=== PATIENT | female | born 1990 | race African-American/Black ===

== ENCOUNTER 2016-12-19 16:25 | Emergency (ER) | payer OTHER ==
[2016-12-19 16:28] VITALS: BP 103/62; BMI 19.0
--- NOTE | 2016-12-19 17:22 | DR.TOOTHHP ---
HPI - Time Seen Time seen: 17:15 - Primary Care Physician Primary Care Physician: JAVED - HPI Comment HPI Comment: PATIENT IS 15 MONTHS . TOOK AMOXICILLIN BUT STILL HURTING. DENTAL EVALUATION PENDING NEXT MONTH. NO FEVER. - Complaints Chief Complaint Doctors Comments: TOOTHACHE TIMES 3 DAYS. Chief Complaint:: PATIENT HAS A TOOTH ACHE FOR THE LAST 3 DAYS. SHE IS 15 WEEKS OB. - Reviewed Nurses Notes Reviewed: Yes - Source History Provided: Patient - Mode of Arrival Mode of Arrival: Ambulatory - Timing Onset of Chief Complaint: 12/16/16 - Severity Pain Severity: Moderate - Location Location:: Gums - Context Onset:: Spontaneous, Previous Caries History Of: None - Modifying Factors Worsens:: Chewing Improves:: Analagesics havn't helped - Associated Signs and Symptoms Associated signs and symptoms: None PMH - PMH Past Medical History: No Past Surgical History: No Surgical History: No History - Family History History of Family Medical Conditions: Yes Family Medical History: Hypertension - Social History Does patient currently use any type of tobacco product: No Have you used tobacco products in the last 12 months: No Type of Tobacco Use: None Does any household member use tobacco: No Alcohol Use: None Do you use any recreational Drugs:: No Lives With: Family Lives Where: Home - infectious screening In the last 2 months have you had wt loss of >10#?: NO Have you had fever, night sweats or hemotysis?: No Have you traveled outside the country in the last 6 months?: No Isolation: Standard ROS - Review of Systems Constitutional: No Symptoms Reported Eyes: No Symptoms Reported ENTM: Mouth Pain. negative: Loose Teeth (UPPER 3RD MOLARS LT AND RT ARE HURTING.) Respiratoy: No Symptoms Reported. negative: Productive Cough, Short of Breath, Wheezing, Hemoptysis Cardiovascular: No Symptoms Reported. negative: Chest Pain Gastrointestinal/Abdominal: No Symptoms Reported. negative: Abdominal Pain, Nausea, Vomiting Genitourinary: No Symptoms Reported. negative: Dysuria, Frequency, Hematuria Neurological: No Symptoms Reported. negative: Headache, Weakness, Dizziness Musculoskeletal: No Symptoms Reported Integumentary: No Symptoms Reported Hematologic/Lymphatic: No Symptoms Reported Endocrine: No Symptoms Reported All Other Systems: Reviewed and Negative PE - Vital Signs Vitals: Pulse Rate 90 Respiratory Rate 20 Blood Pressure [Right Arm] 123/89 Blood Pressure 103/62 O2 Sat by Pulse Oximetry 100 - General Limitations: No Limitations General Appearance: Alert - Head Head Exam: Normal Inspection - Eyes Eye exam: Normal Appearance - ENT ENT Exam: Normal External Ear Exam External Ear Exam: Normal External Inspection TM/Canal Exam: Bilateral Normal Nose Exam: Normal Nose Exam Mouth Exam: Normal Inspection. negative: Trismus Teeth Exam: Dental Caries, Dental Tenderness # (UPPER 3RD MOLAR LT AND RT.), Gingival Swelling (UPPER 3RD LT AND RT MOLARS, GUM INFLAME.) Throat Exam: Normal Inspection - Neck Neck Exam: Trachea Midline. negative: Tenderness, Meningismus, Lymphadenopathy - Chest Chest Inspection: Symmetric Chest Wall Rise - Respiratory Respiratory Exam: Normal Lung Sounds Bilat Respiratory Exam: Bilateral Clear to Auscultation - Cardiovascular Cardiovascular Exam: Regular Rate, Normal Rhythm, Normal Heart Sounds - Abdominal Exam Abdominal Exam: Normal Bowel Sounds, Soft. negative: Tenderness - Extremities Extremities Exam: Normal Inspection - Back Back Exam: Normal Inspection - Neurologic Neurological Exam: Alert, Oriented X3 - Psychiatric Psychiatric Exam: Normal Affect, Normal Mood - Skin Skin Exam: Normal Color MDM - Differential diagnosis Differential Diagnosis: Other (GINGIVITIS, DENTAL PAIN) Course - Treatment Treatment: SEE ORDERS. - Education/Counseling Education/Counseling: Patient, Education Educated On: Diagnosis, Needs for Follow Up - Diagnosis Discharge Problem: Pain, dental, Gingivitis - Discharge Plan Disposition: 01 HOME, SELF-CARE Condition: Stable Prescriptions: Acetaminophen/Codeine Tab [TYLENOL w/CODEINE #3 (300 MG/30 MG) *] 1 tab PO Q6H PRN #15 tab PRN Reason: Pain Clindamycin HCl 150 mg PO Q6H #28 cap - Follow ups/Referrals Follow ups/Referrals: SADAF BURT [Primary Care Provider] - 3 days - Instructions Instructions: Dental Pain, Gingivitis, [id number] Additional Instructions: RETURN TO ED IF WORSE. RETURN TO ED IF WORSE. SEE DENTIST OF YOUR CHOICE THIS WEEK.
== END 2016-12-19 17:43 | disposition home or self-care (01) ==
LOC: ER 16:33
DX: K05.10 Chronic gingivitis, plaque induced (principal); K08.89 Other specified disorders of teeth and supporting structures
CPT/HCPCS: 99281; 99282

== ENCOUNTER 2017-02-17 12:14 | Emergency (ER) | payer OTHER ==
[2017-02-17 12:18] VITALS: BP 100/68
--- NOTE | 2017-02-17 12:49 | DR.GENAD ---
HPI - PCP Primary Care Physician: nedra - Complaint/Symptoms Chief Complaint Doctors Comments: Patient denies abdominal pain, denies vaginal spotting. Chief Complaint:: patient stated she is 5 months yesterday she started hurting in her chest when she takes a deep breath. she stated she hurts also when she lays down on her back. - Source History Provided: Patient - Mode of Arrival Mode of Arrival: Ambulatory - Timing Onset of Chief Complaint: 02/16/17 PMH - PMH Past Medical History: No Past Surgical History: No Surgical History: No History - Family History History of Family Medical Conditions: Yes Family Medical History: Hypertension - Social History Does patient currently use any type of tobacco product: Yes Have you used tobacco products in the last 12 months: Yes Type of Tobacco Use: Cigarettes How many years tobacco product used: 5 Does any household member use tobacco: No Alcohol Use: None Do you use any recreational Drugs:: No Lives With: Alone Lives Where: Home - infectious screening In the last 2 months have you had wt loss of >10#?: NO Have you had fever, night sweats or hemotysis?: No Have you traveled outside the country in the last 6 months?: No Isolation: Standard ROS - Review of Systems Eyes: No Symptoms Reported ENTM: No Symptoms Reported Respiratoy: No Symptoms Reported Cardiovascular: No Symptoms Reported Gastrointestinal/Abdominal: No Symptoms Reported Genitourinary: No Symptoms Reported Neurological: No Symptoms Reported Musculoskeletal: No Symptoms Reported Integumentary: No Symptoms Reported Hematologic/Lymphatic: No Symptoms Reported Endocrine: No Symptoms Reported Psychiatric: No Symptoms Reported All Other Systems: Reviewed and Negative PE - Vital Signs Vitals: Temperature 98.6 F Pulse Rate 83 Respiratory Rate 16 Blood Pressure [Right Arm] 123/89 Blood Pressure 100/68 O2 Sat by Pulse Oximetry 100 - General General Appearance: Alert, In No Apparent Distress - Head Head Exam: Normal Inspection, Atraumatic - Eyes Eye exam: Normal Appearance, PERRL, EOMI - ENT ENT Exam: Normal Exam External Ear Exam: Normal External Inspection TM/Canal Exam: Bilateral Normal Nose Exam: Normal Nose Exam Throat Exam: Normal Inspection - Neck Neck Exam: Normal Inspection, Full ROM - Chest Chest Inspection: Normal Inspection - Respiratory Respiratory Exam: Normal Lung Sounds Bilat Respiratory Exam: Bilateral Clear to Auscultation - Cardiovascular Cardiovascular Exam: Regular Rate, Normal Rhythm - Abdominal Exam Abdominal Exam: Normal Inspection Abdominal Tenderness: negative: RUQ, RLQ, LUQ, LLQ, Epigastrium, Suprapubic, Diffuse, Mild, Moderate, Severe, Other - Extremities Extremities Exam: Normal Inspection, Full ROM - Back Back Exam: Normal Inspection, Full ROM - Neurologic Neurological Exam: Alert, Oriented X3, CN II-XII Intact - Psychiatric Psychiatric Exam: Normal Affect - Skin Skin Exam: Warm, Dry, Intact - Diagnosis Discharge Problem: Rhinitis Qualifiers: Rhinitis type: unspecified Chronicity: acute Qualified Code(s): J00 - Acute nasopharyngitis [common cold] - Discharge Plan Condition: Stable - Follow ups/Referrals Follow ups/Referrals: SADAF BURT [Primary Care Provider] - 3 days - Instructions
== END 2017-02-17 13:07 | disposition home or self-care (01) ==
LOC: ER 12:21
DX: J00 Acute nasopharyngitis [common cold] (principal)
CPT/HCPCS: 99281; 99282

== ENCOUNTER 2017-04-15 10:06 | Emergency (ER) | payer OTHER ==
[2017-04-15 10:12] VITALS: BP 104/69; BMI 22.3
[2017-04-15 10:54] LABS: BILIRUBIN,URINE NEGATIVE (NEGATIVE); BLOOD/HEMOGLOBIN,URINE NEGATIVE (NEGATIVE); GLUCOSE, URINE NEGATIVE (NEGATIVE); KETONES,URINE NEGATIVE (NEGATIVE); LEUKOCYTE ESTERASE ,URINE 1+ (NEGATIVE); NITRITES,URINE NEGATIVE (NEGATIVE); PROTEIN,URINE 1+ (NEGATIVE); UROBILINOGEN,URINE NORMAL (NORMAL)
[2017-04-15 11:10] LABS: APPEARANCE,URINE SLIGHTLY HAZY (CLEAR); BACTERIA,URINE NEGATIVE /HPF (NEGATIVE); COLOR,URINE YELLOW (YELLOW); RBC,URINE NONE SEEN /HPF (NEGATIVE); SQUAMOUS EPITHELIAL CELL,UR MANY /HPF (NEGATIVE)
[2017-04-15 11:11] LABS: AMORPHOUS SEDIMENT,UR TRACE /HPF (NEGATIVE); MUCUS,URINE FEW /HPF (NEGATIVE)
== END 2017-04-15 11:57 | disposition home or self-care (01) ==
LOC: ER 10:15
DX: R10.84 Generalized abdominal pain (principal); Z3A.31 31 weeks gestation of pregnancy
CPT/HCPCS: 81001; 99284

== ENCOUNTER 2017-05-25 21:15 | Emergency (ER) | payer OTHER ==
[2017-05-25 21:22] VITALS: BP 124/67; BMI 24.0
[2017-05-25 22:32] LABS: APPEARANCE,URINE CLEAR (CLEAR); COLOR,URINE YELLOW (YELLOW)
[2017-05-25 22:33] LABS: BILIRUBIN,URINE NEGATIVE (NEGATIVE); BLOOD/HEMOGLOBIN,URINE NEGATIVE (NEGATIVE); GLUCOSE, URINE NEGATIVE (NEGATIVE); KETONES,URINE 1+ (NEGATIVE); NITRITES,URINE NEGATIVE (NEGATIVE); PROTEIN,URINE TRACE (NEGATIVE)
[2017-05-25 22:34] LABS: BACTERIA,URINE TRACE /HPF (NEGATIVE); LEUKOCYTE ESTERASE ,URINE NEGATIVE (NEGATIVE); RBC,URINE 0-3 /HPF (NEGATIVE); SQUAMOUS EPITHELIAL CELL,UR NUMEROUS /HPF (NEGATIVE); UROBILINOGEN,URINE NORMAL (NORMAL)
--- NOTE | 2017-05-25 22:58 | DR.GENAD ---
HPI - PCP Primary Care Physician: JAVED - Complaint/Symptoms Chief Complaint:: CRAMPING PELVIC PAIN, LIKE CONTACTIONS - Source History Provided: Patient - Mode of Arrival Mode of Arrival: Ambulatory - Timing Onset of Chief Complaint: 05/25/17 PMH - PMH Past Medical History: No Past Medical History: Anemia Past Surgical History: No Surgical History: No History - Family History History of Family Medical Conditions: No Family Medical History: Hypertension - Social History Does patient currently use any type of tobacco product: No Have you used tobacco products in the last 12 months: No Type of Tobacco Use: None Does any household member use tobacco: No Alcohol Use: None Do you use any recreational Drugs:: No Lives With: Family Lives Where: Home - infectious screening In the last 2 months have you had wt loss of >10#?: NO Have you had fever, night sweats or hemotysis?: No Have you traveled outside the country in the last 6 months?: No Isolation: Standard PE - Vital Signs Vitals: Temperature 97.9 F Pulse Rate 83 Respiratory Rate 17 Blood Pressure [Right Arm] 123/89 Blood Pressure 124/67 O2 Sat by Pulse Oximetry 99 ROR - Labs Reviewed Laboratory: Specimen Type Clean catch urine 05/25/17 21:53 Urine Color Yellow (YELLOW) 05/25/17 21:53 Urine Appearance Clear (CLEAR) 05/25/17 21:53 Urine pH 7.0 (5.0 - 8.0) 05/25/17 21:53 Ur Specific [place] 1.015 (1.000-1.030) 05/25/17 21:53 Urine Protein Trace (NEGATIVE) 05/25/17 21:53 Urine Glucose (UA) Negative (NEGATIVE) 05/25/17 21:53 Urine Ketones 1+ (NEGATIVE) 05/25/17 21:53 Urine Occult Blood Negative (NEGATIVE) 05/25/17 21:53 Urine Nitrite Negative (NEGATIVE) 05/25/17 21:53 Urine Bilirubin Negative (NEGATIVE) 05/25/17 21:53 Urine Urobilinogen Normal (NORMAL) 05/25/17 21:53 Ur Leukocyte Esterase Negative (NEGATIVE) 05/25/17 21:53 Urine RBC 0-3 /HPF (NEGATIVE) 05/25/17 21:53 Urine WBC 0-3 /HPF (NEGATIVE) 05/25/17 21:53 Ur Squamous Epith Cells Numerous /HPF (NEGATIVE) 05/25/17 21:53 Urine Bacteria Trace /HPF (NEGATIVE) 05/25/17 21:53 Ur Culture Indicated? No/not indicated 05/25/17 21:53 - Discharge Plan Condition: Stable - Follow ups/Referrals Follow ups/Referrals: SADAF BURT [Primary Care Provider] - 3 days - Instructions
== END 2017-05-25 23:15 | disposition home or self-care (01) ==
LOC: ER 21:15
DX: O60.03 Preterm labor without delivery, third trimester (principal)
CPT/HCPCS: 81001; 99284

== ENCOUNTER 2017-05-30 15:51 | Emergency (ER) | payer OTHER ==
[2017-05-30 16:01] VITALS: BMI 24.0
[2017-05-30 16:19] VITALS: BP 127/90
[2017-05-30 16:20] LABS: BILIRUBIN,URINE NEGATIVE (NEGATIVE); BLOOD/HEMOGLOBIN,URINE NEGATIVE (NEGATIVE); GLUCOSE, URINE NEGATIVE (NEGATIVE); KETONES,URINE 3+ (NEGATIVE); LEUKOCYTE ESTERASE ,URINE 1+ (NEGATIVE); NITRITES,URINE NEGATIVE (NEGATIVE); PROTEIN,URINE 1+ (NEGATIVE); UROBILINOGEN,URINE 2+ (NORMAL)
[2017-05-30 16:31] LABS: APPEARANCE,URINE HAZY (CLEAR); COLOR,URINE YELLOW (YELLOW)
[2017-05-30 16:32] LABS: BACTERIA,URINE TRACE /HPF (NEGATIVE); RBC,URINE 0 /HPF (NEGATIVE); SQUAMOUS EPITHELIAL CELL,UR MODERATE /HPF (NEGATIVE)
== END 2017-05-30 16:50 | disposition home or self-care (01) ==
LOC: ER 15:51
DX: R10.84 Generalized abdominal pain (principal); Z3A.38 38 weeks gestation of pregnancy
CPT/HCPCS: 81001; 99284

== ENCOUNTER → 2017-06-01 | Outpatient (CLI) | payer OTHER ==
[2017-05-30 16:19] VITALS: BP 127/90
[2017-06-01 11:06] LABS: BILIRUBIN,URINE NEGATIVE (NEGATIVE); BLOOD/HEMOGLOBIN,URINE NEGATIVE (NEGATIVE); GLUCOSE, URINE NEGATIVE (NEGATIVE); KETONES,URINE NEGATIVE (NEGATIVE); LEUKOCYTE ESTERASE ,URINE 2+ (NEGATIVE); NITRITES,URINE NEGATIVE (NEGATIVE); PROTEIN,URINE 1+ (NEGATIVE); UROBILINOGEN,URINE 2+ (NORMAL)
[2017-06-01 11:06] LABS: BASOPHILS % (AUTO) 0.5 % (0.2-1.0); EOSINOPHILS % (AUTO) 0.7 % (0.9-2.9); HEMATOCRIT 31.5 % (36.0-47.0); HEMOGLOBIN 10.3 g/dL (12.0-16.0); LYMPHOCYTES # (AUTO) 1.5 X10^3/uL (1.3-2.9); LYMPHOCYTES % (AUTO) 29.7 % (21.0-51.0); MEAN CORPUSCULAR HEMOGLOBIN 23.7 pg (27.0-34.0); MEAN CORPUSCULAR HGB CONC 32.6 g/dL (33.0-35.0); MEAN CORPUSCULAR VOLUME 72.9 fL (80.0-100.0); MEAN PLATELET VOLUME 9.2 fL (7.4-11.0); MONOCYTES # (AUTO) 0.4 x10^3/uL (0.3-0.8); MONOCYTES % (AUTO) 8.7 % (0.0-13.0); NEUTROPHILS % (AUTO) 60.4 % (42.0-75.0); PLATELET COUNT 104 X10^3/uL (150.0-450.0); RED BLOOD COUNT 4.32 X10^6/uL (3.5-5.4); RED CELL DISTRIBUTION WIDTH 14.9 % (11.6-16.5); WHITE BLOOD COUNT 4.9 X10^3/uL (3.6-10.0)
[2017-06-01 11:18] LABS: APPEARANCE,URINE CLOUDY (CLEAR); COLOR,URINE YELLOW (YELLOW)
[2017-06-01 11:19] LABS: PLATELET MORPHOLOGY COMMENT NORMAL (NORMAL); POIKILOCYTOSIS SLIGHT
[2017-06-01 11:19] LABS: AMORPHOUS SEDIMENT,UR 1+ /HPF (NEGATIVE); BACTERIA,URINE 1+ /HPF (NEGATIVE); RBC,URINE NEGATIVE /HPF (NEGATIVE); SQUAMOUS EPITHELIAL CELL,UR MANY /HPF (NEGATIVE)
[2017-06-01 11:20] LABS: HYPOCHROMASIA 1+; MICROCYTOSIS 1+
[2017-06-01 11:29] LABS: BLOOD UREA NITROGEN 4 mg/dL (7-18); CALCIUM 8.3 mg/dL (8.5-10.1); CARBON DIOXIDE 24.8 mmol/L (21-32); CHLORIDE 105 mmol/L (98-107); CREATININE 0.62 mg/dL (0.55-1.02); SODIUM 139 mmol/L (136-145); eGFR BLACK RACES > 60 (>60); eGFR NON BLACK RACES > 60 (>60)
== END ==
LOC: LAB 10:13
PROVIDERS: ATTEND Specialist
DX: Z01.818 Encounter for other preprocedural examination (principal); Z34.83 Encounter for supervision of other normal pregnancy, third trimester
CPT/HCPCS: 36415; 80048; 80307; 81001; 85025; 86592; 86850; 86900; 86901; G0434

== ENCOUNTER 2017-06-03 06:41 | Inpatient (IN) | payer OTHER ==
[~2017-06-03 06:41] MED LIST: D5 1/2 NS 1000 ML 1,000 ML IV ONE; D5 1/2 NS 1L W PITOCIN 20 UNITS/L 20 UNITS/1,000 ML BAG IV ONE; D5LR 1L W PITOCIN 10 UNITS/L 10 UNITS/1,000 ML BAG IV ONE; LR 1000 ML IV 1,000 ML IV ONE; PITOCIN ONE
[2017-06-03] MEDS ORDERED: D5 1/2 NS 1000 ML 1,000 ML IV SCH (07:03)
[2017-06-03] MEDS ORDERED: MORPHINE SULFATE INJ 2 MG INJ IVP PRN (07:03)
[2017-06-03] MEDS ORDERED: REGLAN INJ 10 MG VIAL IVP PRN ×2 (07:03→14:48)
[2017-06-03] MEDS ORDERED: PITOCIN IVP ONE (07:03)
[2017-06-03] MEDS ORDERED: D5LR 1L W PITOCIN 10 UNITS/L 10 UNITS/1,000 ML BAG IV PRN (07:03)
[2017-06-03] MEDS ORDERED: PHENERGAN INJ 25 MG IV PRN ×3 (07:03→12:07)
--- NOTE | 2017-06-03 07:20 | DR.OB ---
OB Quick Note - Assessment/Plan Assessment/Plan: L&D 06/03/17 at 7:00am S-No complaint. O-Afebrile,VSS FZM=[id number] with good LTV, +accel, no decel. CTX=occ./mild CVX=3cm/50%/-1/VTX AROM with clear fluid. IUPC and FSE placed. A-IUP at 38 5/7 weeks for induction Polyhydramnios Anxiety H/A Anemia P-Begin pitocin induction Anticipate
[2017-06-03] MEDS ORDERED: POTASSIUM CHLORIDE LIQ 20 MEQ UDC PO ONE (07:24)
[2017-06-03] MEDS: NUBAIN INJ 200 MG VIAL MULTIDOSE IVP PRN ×2 (07:52→10:00)
[2017-06-03] MEDS ORDERED: NUBAIN INJ 10 ONE ×2 (07:52→09:56)
[2017-06-03] MEDS ORDERED: PHENERGAN INJ 25 MG ONE (07:52)
[2017-06-03] MEDS ORDERED: NAROPIN EPIDURAL 0.2% + FENTANYL 90MCG 60 ML EPI ONE (09:46)
[2017-06-03] MEDS ORDERED: FENTANYL INJ 100 mcg ONE (09:46)
[2017-06-03] MEDS ORDERED: MOTRIN TAB 800 MG PO PRN ×3 (12:06→14:48)
[2017-06-03] MEDS ORDERED: D5 1/2 NS 1000 ML 1,000 ML with PITOCIN 20 UNITS IV SCH ×4 (13:00)
[2017-06-03] MEDS ORDERED: POTASSIUM CHLORIDE LIQ 20 MEQ UDC ONE (14:37)
[2017-06-03] MEDS ORDERED: TYLENOL #3 TAB (W/CODEINE) PO PRN (14:48)
[2017-06-03] MEDS ORDERED: AMBIEN PO PRN (14:48)
[2017-06-03] MEDS ORDERED: ADACEL TDaP IM ONE (14:48)
[2017-06-03] MEDS ORDERED: MILK OF MAGNESIA PO PRN (14:48)
[2017-06-03] MEDS ORDERED: DERMOPLAST SPRAY TOP PRN (14:48)
--- NOTE | 2017-06-03 15:27 | DR.OB ---
OB Quick Note - Assessment/Plan Assessment/Plan: Delivery Note SPEECH CORRECTION ASSISTANT 06/03/17 at 11:53pm Patient complete and pushing. Head delivered over intact perineum. Nuchal cord x 1 reduced. Nose and mouth bulb suctioned. Body delivered over intact perineum. Cord clamped x 2 and cut. handed to attendant. Cord sent for gases. Placenta delivered spontaneously / intact / 3 vessel cord. No CVX / vaginal / perineal tears. Viable female infant, VTX/OA, wt=6'8" and 8/9 , stable to NBN. Mother stable to RR. [id number].
[2017-06-03] MEDS: ZANTAC PO SCH (20:02)
[2017-06-04 04:33] LABS: HEMATOCRIT 31.7 % (36.0-47.0); HEMOGLOBIN 10.2 g/dL (12.0-16.0)
[2017-06-04 04:54] LABS: BLOOD UREA NITROGEN 5 mg/dL (7-18); CARBON DIOXIDE 23.4 mmol/L (21-32); CHLORIDE 107 mmol/L (98-107); CREATININE 0.57 mg/dL (0.55-1.02); SODIUM 140 mmol/L (136-145); eGFR BLACK RACES > 60 (>60); eGFR NON BLACK RACES > 60 (>60)
[2017-06-04] MEDS ORDERED: ADACEL TDaP IM ONE (05:22)
[2017-06-04] MEDS ORDERED: LEXAPRO ONE (08:52)
[2017-06-04] MEDS ORDERED: LEXAPRO PO SCH (09:00)
[2017-06-04] MEDS ORDERED: PRENATAL PLUS PO SCH (09:00)
[2017-06-04] MEDS: ZANTAC PO SCH (09:18)
[2017-06-04 16:10] VITALS: BP 133/64
== END 2017-06-04 15:15 | disposition home or self-care (01) | DRG 775 ==
LOC: LD 06:41 → MED/SURG 15:12
PROVIDERS: ADMIT Specialist; ATTEND Specialist
PROC: 10E0XZZ Delivery of Products of Conception, External Approach (ICD-10-PCS; principal; 2017-06-03)
PROC: 10907ZC Drainage of Amniotic Fluid, Therapeutic from Products of Conception, Via Natural or Artificial Opening (ICD-10-PCS; 2017-06-03)
PROC: 3E033VJ Introduction of Other Hormone into Peripheral Vein, Percutaneous Approach (ICD-10-PCS; 2017-06-03)
PROC: 00HU33Z Insertion of Infusion Device into Spinal Canal, Percutaneous Approach (ICD-10-PCS; 2017-06-03)
PROC: 3E0234Z Introduction of Serum, Toxoid and Vaccine into Muscle, Percutaneous Approach (ICD-10-PCS; 2017-06-03)
DX: O40.3XX0 Polyhydramnios, third trimester, not applicable or unspecified (principal); Z37.0 Single live birth; Z3A.38 38 weeks gestation of pregnancy; O99.013 Anemia complicating pregnancy, third trimester; D50.8 Other iron deficiency anemias; O99.343 Other mental disorders complicating pregnancy, third trimester; Z23 Encounter for immunization
CPT/HCPCS: 09167; 36415; 59409; 80048; 80307; 81001; 85014; 85018; 85025; 86592; 86850; 86900; 86901; A4216; A4222; S0197; G0434; J2300; J2550; J2590; J3010; J7042; J7120

== ENCOUNTER 2019-02-19 06:16 | Inpatient (IN) ==
[2019-02-19] MEDS ORDERED: NS 100 ML IV 100 ML ONE ×2 (06:30→11:47)
[2019-02-19] MEDS ORDERED: D5LR 1L W PITOCIN 10 UNITS/L 10 UNITS/1,000 ML BAG IV ONE (06:30)
[2019-02-19] MEDS ORDERED: D5 1/2 NS 1000 ML 1,000 ML ONE (06:31)
[2019-02-19] MEDS ORDERED: AMPICILLIN VIAL 2 GRAM ONE (06:31)
[2019-02-19] MEDS ORDERED: REGLAN INJ 10 MG VIAL IVP PRN ×2 (06:38→16:46)
[2019-02-19] MEDS ORDERED: NUBAIN INJ 200 MG VIAL MULTIDOSE IVP PRN (06:38)
[2019-02-19] MEDS ORDERED: PITOCIN IVP ONE (06:38)
[2019-02-19] MEDS ORDERED: D5LR 1L W PITOCIN 10 UNITS/L 10 UNITS/1,000 ML BAG IV PRN (06:38)
[2019-02-19] MEDS ORDERED: PHENERGAN INJ 25 MG IM PRN ×3 (06:38→16:46)
[2019-02-19] MEDS ORDERED: D5 1/2 NS 1000 ML 1,000 ML IV SCH (06:38)
[2019-02-19] MEDS ORDERED: MORPHINE SULFATE INJ 2 MG INJ IVP PRN (06:38)
[2019-02-19] MEDS ORDERED: AMPICILLIN VIAL 2 GRAM 2 G in NS 100 ML IV + SPIKE MINIBAG* 100 ML IV SCH (06:38)
--- NOTE | 2019-02-19 07:17 | DR.OB ---
OB Quick Note - Assessment/Plan Assessment/Plan: L&D 02/09/19 at 6:50am S-No complaint. O-Afebrile,VSS MMC=274 with good LTV, +accel, no decel. CTX=none CVX=2-3cm/50%/-1/VTX AROM with clear fluid. IUPC and FSE placed. A-IUP at 38 4/7 weeks for induction Polyhydramnios +GBS Anemia Multiparity desiring permanent sterilization P-Begin pitocin induction ABX in labor for +GBS Anticipate with PP BTL
[2019-02-19] MEDS ORDERED: NUBAIN INJ 10 ONE (08:18)
[2019-02-19] MEDS: VSL#3 PO SCH ×2 (08:36→08:41)
[2019-02-19] MEDS ORDERED: D5 1/2 NS 1L W PITOCIN 20 UNITS/L 20 UNITS/1,000 ML BAG IV ONE (08:55)
[2019-02-19] MEDS ORDERED: PITOCIN ONE (08:55)
[2019-02-19] MEDS ORDERED: XYLOCAINE 1 % (PLAIN) ONE (09:34)
[2019-02-19] MEDS ORDERED: ADRENALINE CHL INJ ONE (09:34)
[2019-02-19] MEDS ORDERED: FENTANYL INJ 100 mcg ONE (09:34)
[2019-02-19] MEDS ORDERED: NAROPIN EPIDURAL 0.2% + FENTANYL 90MCG 60 ML EPI ONE (09:35)
[2019-02-19] MEDS ORDERED: XYLOCAINE-MPF 1% ONE (09:35)
[2019-02-19] MEDS ORDERED: LR 1000 ML IV 1,000 ML ONE (09:41)
[2019-02-19] MEDS ORDERED: AMPICILLIN VIAL 1 GRAM 1 G in NS 50 ML IV + SPIKE MINIBAG* 50 ML IV SCH (10:30)
[2019-02-19] MEDS ORDERED: AMPICILLIN VIAL 1 GRAM ONE (11:47)
[2019-02-19] MEDS ORDERED: VERSED ONE (12:31)
[2019-02-19] MEDS ORDERED: ZOFRAN INJ 4 MG VIAL ONE (12:31)
[2019-02-19] MEDS ORDERED: DIPRIVAN VIAL ONE (12:31)
[2019-02-19] MEDS ORDERED: XYLOCAINE 2% and EPINEPHRINE 1:100,000 ONE (14:32)
[2019-02-19] MEDS ORDERED: MOTRIN TAB 800 MG PO PRN (15:00)
--- NOTE | 2019-02-19 15:00 | DR.OB ---
OB Quick Note - Assessment/Plan Assessment/Plan: Delivery Note MOLDED FRAMES ASSEMBLER 02/19/19 at 2:44pm Patient complete and pushing. Head delivered over intact perineum. Nuchal cord x 1 reduced. Nose and mouth bulb suctioned. Body delivered over intact perineum. Cord clamped x 2 and cut. Infant handed to attendant. Cord sent for gases. Placenta delivered spontaneously / intact / 3 vessel cord. No CVX / vaginal / perineal tears. Viable female infant, VTX/OA, wt=6'3" and 8/9, stable to NBN. Mother stable to RR. [id number].
[2019-02-19] MEDS ORDERED: ANCEF 1 GRAM IV PREMIX* 1 G/50 ML BAG IV ONE (15:11)
[2019-02-19] MEDS ORDERED: DILAUDID INJ ONE ×2 (16:43→17:06)
[2019-02-19] MEDS ORDERED: ZOFRAN INJ 4 MG VIAL IVP PRN (16:46)
[2019-02-19] MEDS ORDERED: BENADRYL INJ 50 MG VIAL IVP PRN (16:46)
[2019-02-19] MEDS ORDERED: DILAUDID INJ IVP PRN (16:46)
[2019-02-19] MEDS ORDERED: MYLICON TAB 80 MG CHEW PO PRN (16:51)
[2019-02-19] MEDS ORDERED: DERMOPLAST SPRAY TOP PRN (16:51)
[2019-02-19] MEDS ORDERED: MILK OF MAGNESIA PO PRN ×2 (16:51)
[2019-02-19] MEDS ORDERED: AMBIEN PO PRN ×2 (16:51)
[2019-02-19] MEDS: PERCOCET TAB 5/325 MG PO PRN ×2 (19:51→23:39)
[2019-02-19] MEDS ORDERED: ADACEL or BOOSTRIX TDaP VACCINE IM ONE (21:00)
[2019-02-19] MEDS: ZANTAC PO SCH (22:45)
[2019-02-19] MEDS: D5 1/2 NS 1000 ML 1,000 ML with PITOCIN 20 UNITS IV SCH ×4 (22:55→23:05)
[2019-02-20] MEDS: PERCOCET TAB 5/325 MG PO PRN ×3 (03:40→13:14)
[2019-02-20 05:17] LABS: HEMOGLOBIN 9.3 g/dL (12.0-16.0)
[2019-02-20] MEDS: ZANTAC PO SCH (08:32)
[2019-02-20] MEDS: VSL#3 PO SCH (08:32)
[2019-02-20] MEDS ORDERED: PRENATAL PLUS PO SCH (09:00)
[2019-02-20] MEDS ORDERED: BACTROBAN CREAM TOP SCH (14:00)
[2019-02-20 17:19] VITALS: BP 130/76
== END 2019-02-20 16:00 | disposition home or self-care (01) | DRG 798 ==
LOC: LD 06:16 → MED/SURG 16:54
PROVIDERS: ADMIT Specialist; ATTEND Specialist
DX: O99.013 Anemia complicating pregnancy, third trimester; Z23 Encounter for immunization; O40.3XX0 Polyhydramnios, third trimester, not applicable or unspecified; D50.8 Other iron deficiency anemias; B95.1 Streptococcus, group B, as the cause of diseases classified elsewhere; Z37.0 Single live birth; Z01.818 Encounter for other preprocedural examination; Z30.2 Encounter for sterilization; O99.824 Streptococcus B carrier state complicating childbirth; O99.89 Other specified diseases and conditions complicating pregnancy, childbirth and the puerperium; Z3A.38 38 weeks gestation of pregnancy
CPT/HCPCS: 36415; 59409; 80048; 80307; 81001; 85014; 85018; 85025; 86592; 86850; 86900; 86901; 90715; A4216; A4222; S0197; G0434; J0171; J0290; J0690; J1170; J2001; J2250; J2300; J2405; J2590; J2704; J3010; J7050; J7120; S5010